=== PATIENT | female | born 1990 | race Caucasian/White ===

== ENCOUNTER 2020-03-28 22:03 | Inpatient (IN) ==
[2020-03-28] MEDS ORDERED: Lactated Ringers 1000 ml BAG 1,000 ML IV SCH (23:45)
[2020-03-28] MEDS ORDERED: Buffered Lidocaine 1% SYRIN 1 ml INTRADERM ONE (23:50)
[2020-03-28] MEDS ORDERED: Lactated Ringers 1000 ml BAG 1,000 ML IV ONE (23:50)
[2020-03-29] MEDS ORDERED: Morphine 10 MG/ML VIAL (1 ml) IV ONE ×2 (00:17→12:38)
[2020-03-29] MEDS ORDERED: Promethazine INJ(RESTRICTED) 25 MG/ML 1 ml VIAL IV PRN (00:17)
[2020-03-29 00:45] LABS: ABS Basophils 0.1 10^3/ul (0-0.2); ABS Eosinophils 0.1 10^3/ul (0-0.6); ABS Lymphocytes 2.3 10^3/ul (1.0-4.8); ABS Monocytes 0.8 10^3/ul (0-0.8); ABS Neutrophils 12.7 10^3/ul (1.5-7.7); Eosinophil % 0.6 %; Hematocrit 40 % (35-47); Hemoglobin 13.2 g/dL (12.0-16.0); Lymphocyte % 14.2 %; Mean Corpuscular HGB Conc 33 g/dL (31-36); Mean Corpuscular Hemoglobin 28 pg (27-31); Mean Corpuscular Volume 85 fL (80-97); Mean Platelet Volume 8.7 fL (7.4-10.4); Platelet Count 252 10^3/uL (150-450); Red Cell Distribution Width 16 % (10-15)
[2020-03-29 00:47] LABS: Urine Benzodiazepine Screen None Detected (None Detect); Urine Cannabinoids Screen None Detected (None Detect); Urine Opiates Screen None Detected (None Detect)
[2020-03-29] MEDS ORDERED: Promethazine INJ(RESTRICTED) 25 MG/ML 1 ml VIAL IM PRN (01:07)
[2020-03-29] MEDS ORDERED: Morphine 10 MG/ML VIAL (1 ml) IM ONE (01:07)
[2020-03-29] MEDS ORDERED: Oxytocin in LR 20 UNITS/1,000 ML BAG IVPB ONE (11:05)
[2020-03-29] MEDS ORDERED: Promethazine INJ(RESTRICTED) 25 MG/ML 1 ml VIAL IV ONE (12:40)
[2020-03-29] MEDS ORDERED: OBEPIDURAL 250 ML EPIDURAL ONE (14:46)
[2020-03-29] MEDS ORDERED: EPHEDrine (Pressors) 50 MG/ML VIAL IV PUSH PRN (15:46)
[2020-03-29] MEDS ORDERED: Lactated Ringers 1000 ml BAG 500 ML IV PRN (15:46)
[2020-03-29] MEDS ORDERED: Sodium Citrate/Citric Acid LIQ 15 ML UDC PO PRN (15:46)
[2020-03-29] MEDS ORDERED: Phenylephrine 40 mcg/mL 10mL (400mcg) SYRINGE IV PUSH PRN (15:46)
[2020-03-29] MEDS ORDERED: Lactated Ringers 1000 ml BAG 1,000 ML IV ONE (15:46)
[2020-03-29] MEDS ORDERED: OBEPIDURAL 250 ML EPIDURAL SCH (16:00)
[2020-03-29] MEDS ORDERED: Lactated Ringers 1000 ml BAG 1,000 ML IV SCH (16:00)
[2020-03-30] MEDS ORDERED: Lidocaine 2% JELLY 5 ML TUBE LIDO2GEL7 TOPICAL SCH (06:08)
[2020-03-30] MEDS ORDERED: Witch Hazel PAD JAR TOPICAL PRN (06:51)
[2020-03-30] MEDS ORDERED: Oxytocin in LR 20 UNITS/1,000 ML BAG IVPB SCH (07:00)
[2020-03-30] MEDS ORDERED: Lactated Ringers 1000 ml BAG 1,000 ML IV SCH (07:00)
[2020-03-30] MEDS ORDERED: Dibucaine 1% OINT 28.35 GM TUBE ONE (09:52)
[2020-03-30] MEDS ORDERED: Lidocaine 1% VIAL 10 MG/ML VIAL ONE (10:28)
[2020-03-31 06:55] LABS: ABS Eosinophils 0.2 10^3/ul (0-0.6); ABS Lymphocytes 2.7 10^3/ul (1.0-4.8); ABS Monocytes 0.8 10^3/ul (0-0.8); ABS Neutrophils 9.7 10^3/ul (1.5-7.7); Eosinophil % 1.2 %; Hematocrit 32 % (35-47); Hemoglobin 10.5 g/dL (12.0-16.0); Lymphocyte % 20.2 %; Mean Corpuscular HGB Conc 33 g/dL (31-36); Mean Corpuscular Hemoglobin 28 pg (27-31); Mean Corpuscular Volume 85 fL (80-97); Mean Platelet Volume 8.4 fL (7.4-10.4); Platelet Count 223 10^3/uL (150-450); Red Blood Count 3.71 10^6 /uL (3.70-4.87); Red Cell Distribution Width 17 % (10-15); White Blood Count 13.4 10^3/uL (3.5-10.8)
[2020-03-31] MEDS ORDERED: Lidocaine 2% JELLY 6 ML TOPICAL ONE (19:16)
[2020-03-31] MEDS: Lidocaine 2% JELLY 6 ML TOPICAL PRN (20:20)
[2020-04-01 08:57] VITALS: BP 127/67
[2020-04-01] MEDS: Lidocaine 2% JELLY 6 ML TOPICAL PRN (09:01)
== END 2020-04-01 13:35 | disposition home or self-care (01) | DRG 560 ==
LOC: MCHOBOUT 22:03 → MCHOB 23:43
PROVIDERS: ADMIT Midwife; ATTEND Midwife